=== PATIENT | male | born 1960 ===

== ENCOUNTER 2018-12-24 08:15 | Outpatient (CLI) | payer OTHER | END 2018-12-24 23:59 | disposition home or self-care (01) | LOC: CARD 08:15 | PROVIDERS: ATTEND Psychiatry & Neurology Neurology with Special Qualifications in Child Neurology | DX: G62.9 Polyneuropathy, unspecified (principal); G56.01 Carpal tunnel syndrome, right upper limb | CPT/HCPCS: 95886; 95908 ==